=== PATIENT | female | born 1965 | race Caucasian/White ===

== ENCOUNTER 2017-06-15 12:03 | Inpatient (IN) | payer OTHER ==
--- NOTE | 2017-06-15 12:18 | PDOC ---
Attending Attestation - Resident Resident Name: Ronni Gaitan - ED Attending Attestation I have performed the following: I have examined & evaluated the patient, The case was reviewed & discussed with the resident, I agree w/resident's findings & plan, Exceptions are as noted - HPI HPI: 51 yo F history chronic R knee pain secondary to knee replacement presents with R knee, R hip, and L posterior rib pain s/p fall down stairs. She states she recently moved to a new apartment, was confused in the middle of the night when she was walking to the bathroom, fell down a flight of stairs. No LOC, no head injury, no blood thinners. She states this occurred at 4:30 am. She was able to get herself back to bedroom, but has been unable to ambulate since then. She took her oxycodone this morning without relief. - Physicial Exam PE: GENERAL: Awake, alert, and fully oriented. Appears uncomfortable, anxious. HEAD: No signs of trauma EYES: PERRLA, EOMI, sclera anicteric, conjunctiva clear ENT: Auricles normal inspection, hearing grossly normal, nares patent, oropharynx clear without exudates. Moist mucosa NECK: Normal ROM, supple, no lymphadenopathy, JVD, or masses LUNGS: Breath sounds equal, clear to auscultation bilaterally. No wheezes, and no crackles. +Tenderness to L posterior chest wall. HEART: Regular rate and rhythm, normal S1 and S2, no murmurs, rubs or gallops ABDOMEN: Soft, nontender, normoactive bowel sounds. No guarding, no rebound. No masses EXTREMITIES: +Tenderness to B/L hips, R pelvis. Limited ROM R hip due to pain. Remainder of extremities with normal range of motion, no edema. No clubbing or cyanosis. No cords, erythema. NEUROLOGICAL: Cranial nerves II through XII grossly intact. Normal speech. Motor and sensation intact. SKIN: Warm, Dry, normal turgor, no rashes or lesions noted. - Medical Decision Making Pt presents s/p fall down stairs. She was able to ambulate somewhat at home, now unable to walk. Will obtain XR L ribs, R hip and pelvis to r/o fx. I-STOP reference #: [id number]
[2017-06-15] MEDS ORDERED: HYDROmorphone HCL CARPU-JECT 2 MG/1 ML DISP.SYRIN IVPB ONE (12:45)
[2017-06-15] MEDS ORDERED: DOCUSATE SODIUM 100 MG CAPSULE (FP) PO ONE (12:45)
[2017-06-15] MEDS ORDERED: HYDROmorphone HCL CARPU-JECT 2 MG/1 ML DISP.SYRIN ONE (12:56)
[2017-06-15 13:14] LABS: BASO % 0.4 % (0-2.0); EOS % 0.9 % (0-4.5); HEMATOCRIT 43.4 % (32.4-45.2); HEMOGLOBIN 13.9 GM/dL (10.7-15.3); LYMPH % 13.3 % (8-40); MCH 29.8 pg (25.7-33.7); MCHC 32.1 g/dl (32.0-36.0); MEAN CELL VOLUME 92.9 fl (80-96); MEAN PLT VOLUME 8.4 fl (7.5-11.1); MONO % 7.5 % (3.8-10.2); NEUT % 77.9 % (42.8-82.8); PLATELET COUNT 273 K/MM3 (134-434); RBC 4.67 M/mm3 (3.60-5.2); RDW 13.7 % (11.6-15.6); WHITE BLOOD COUNT 13.3 K/mm3 (4.0-10.0)
[2017-06-15 13:40] LABS: ALBUMIN 4.3 g/dl (3.4-5.0); ALK PHOS 102 U/L (45-117); ANION GAP 9 (8-16); BILIRUBIN,TOTAL 0.4 mg/dL (0.2-1.0); BLOOD UREA NITROGEN 12 mg/dL (7-18); CHLORIDE 104 mmol/L (98-107); CO2 26 mmol/L (21-32); CREATININE 0.8 mg/dL (0.55-1.02); GLUCOSE,RANDOM 115 mg/dL (74-106); POTASSIUM 4.3 mmol/L (3.5-5.1); SGOT/AST 18 U/L (15-37); SGPT/ALT 24 U/L (12-78); SODIUM 139 mmol/L (136-145); TOT PROT 7.7 g/dl (6.4-8.2)
--- NOTE | 2017-06-15 14:25 | PDOC ---
History of Present Illness - General Chief Complaint: Injury Stated Complaint: FALL Time Seen by Provider: 06/15/17 12:16 History Source: Patient Exam Limitations: No Limitations - History of Present Illness Initial Comments: 06/15/17 14:03 51F with pmh of right knee replacement March 2016 on chronic pain management with 20mg oxycodone, diabetes, hypertension, bipolar disorder reports falling down a flight of stairs at 4:30am this morning to go to the bathroom in a facility she's not familiar with. Patient complains of right knee pain, bilateral hip pain and left rib pain. No loss of consciousness. No visible bruises. Not on anti anticoagulants or antiplatelets. Was able to walk back upstairs and didn't call ems right away because she was "scared" Took her 20g dose of oxycodone this morning without relief Saw her pcp yesterday a got treated with z-pack for sinusitis. 06/15/17 14:30 Past History - Past Medical History Allergies/Adverse Reactions: Allergies Allergy/AdvReac Type Severity Reaction Status Date / Time amoxicillin AdvReac Vomiting Verified 04/09/16 06:35 amoxicillin trihydrate AdvReac Vomiting Verified 04/09/16 06:35 [From Augmentin] potassium clavulanate AdvReac Vomiting Verified 04/09/16 06:35 [From Augmentin] Home Medications: Ambulatory Orders Atorvastatin Calcium [Lipitor] 10 mg PO DAILY 03/29/16 Metformin HCl [Glucophage] 1,000 mg PO BID 03/29/16 Oxycodone HCl [Oxycodone HCl ER] 20 mg PO Q6H 03/29/16 Ranitidine HCl 300 mg PO DAILY 03/29/16 Venlafaxine HCl ER [Effexor Xr -] 150 mg PO DAILY 03/29/16 FENTANYL 12mcg PATCH [DURAGESIC 12mcg PATCH -] 1 each TD Q72H 06/15/17 Lamotrigine [Lamictal -] 200 mg PO HS 06/15/17 Omeprazole 40 mg PO DAILY 06/15/17 Pregabalin [Lyrica -] 75 mg PO BID 06/15/17 Propranolol HCl 10 mg PO TID PRN 06/15/17 Anemia: No Asthma: No Cancer: No Cardiac Disorders: No CVA: No COPD: No CHF: No Dementia: No Diabetes: Yes GI Disorders: Yes (acid reflux) Disorders: Yes (bladder stimulant) HTN: No Hypercholesterolemia: Yes Liver Disease: No Psychiatric Problems: Yes (ANXIETY, DEPRESSION.) Seizures: No Thyroid Disease: No Other medical history: SPINAL CORD STIMULATOR. CHRONIC PAIN. - Surgical History Abdominal Surgery: No Appendectomy: No Cardiac Surgery: No Cholecystectomy: No Lung Surgery: No Neurologic Surgery: Yes (SPINAL FUSION) Orthopedic Surgery: Yes (ARTHROSCOPY R KNEE) - Suicide/Smoking/Psychosocial Hx Smoking Status: Yes Smoking History: Current every day smoker Years of Tobacco Use: 20 Have you smoked in the past 12 months: Yes Number of Cigarettes Smoked Daily: 20 Cigars Per Day: 0 Information on smoking cessation initiated: No 'Breaking Loose' booklet given: 10/08/12 Hx Alcohol Use: No Drug/Substance Use Hx: Yes Substance Use Type: Prescribed Hx Substance Use Treatment: No Review of Systems - Review of Systems Able to Perform ROS?: Yes Is the patient limited Croatian proficient: No Constitutional: No: Symptoms Reported HEENTM: No: Symptoms Reported Respiratory: No: Symptoms reported Cardiac (ROS): No: Symptoms Reported ABD/GI: No: Symptoms Reported : No: Symptoms Reported Musculoskeletal: Yes: See HPI Integumentary: No: Symptoms Reported Neurological: Yes: Pre-Existing Deficit. No: Symptoms reported *Physical Exam - Vital Signs Last Vital Signs Temp Pulse Resp BP Pulse Ox 98.2 F 87 18 162/102 94 L 06/15/17 12:07 06/15/17 12:07 06/15/17 12:07 06/15/17 12:07 06/15/17 12:07 - Physical Exam General Appearance: Yes: Nourished, Appropriately Dressed, Moderate Distress, Obese HEENT: positive: EOMI, KAELYN, Normal ENT Inspection Neck: negative: Tender Respiratory/Chest: positive: Chest Tender (posterior left ribs) Cardiovascular: positive: Regular Rhythm, Regular Rate, S1, S2. negative: Edema Gastrointestinal/Abdominal: positive: Other (wearing diaper) Musculoskeletal: positive: Other (pain right hi[p, right knee) Neurologic: positive: Fully Oriented, Alert, Respond to painful stimul ED Treatment Course - LABORATORY CBC & Chemistry Diagram: 06/15/17 12:55 06/15/17 12:55 - ADDITIONAL ORDERS Additional order review: Laboratory Results 06/15/17 12:55 Sodium 139 Potassium 4.3 Chloride 104 Carbon Dioxide 26 Anion Gap 9 BUN 12 Creatinine 0.8 D Creat Clearance w eGFR > 60 Random Glucose 115 H Calcium 10.0 Total Bilirubin 0.4 D AST 18 D ALT 24 D Alkaline Phosphatase 102 D Total Protein 7.7 Albumin 4.3 06/15/17 12:55 RBC 4.67 MCV 92.9 MCHC 32.1 RDW 13.7 MPV 8.4 Neutrophils % 77.9 Lymphocytes % 13.3 D Monocytes % 7.5 D Eosinophils % 0.9 Basophils % 0.4 - RADIOLOGY Radiology Studies Ordered: Category Date Time Status HIP & PELVIS-LEFT [RAD] Stat Radiology 06/15/17 12:45 Ordered HIP & PELVIS-RIGHT [RAD] Stat Radiology 06/15/17 12:43 Ordered KNEE 2 POS-RIGHT [RAD] Stat Radiology 06/15/17 12:45 Ordered RIBS-LEFT SIDE [RAD] Stat Radiology 06/15/17 12:50 Ordered - Medications Given in the ED: ED Medications Discontinued Medications Generic Name Dose Route Start Last Admin Trade Name Bryanq PRN Reason Stop Dose Admin Docusate Sodium 100 mg 06/15/17 12:45 06/15/17 12:47 Colace - PO 06/15/17 12:46 Not Given ONCE ONE Hydromorphone HCl 2 mg 06/15/17 12:45 06/15/17 13:06 Dilaudid Injection - IVPB 06/15/17 12:46 2 mg ONCE ONE Administration Medical Decision Making - Medical Decision Making 06/15/17 14:33 51F on chronic pain control s/p r knee replacement present post fall down stairs. Xray series ordered on hips, righ knee and left ribs. Dilaudid for pain control and basic labs. 06/15/17 16:05 Xray positive for acute right neck femoral fracture. Ortho consulted (Toro Soto, covering for Dr. Montanez) patient to be admitted. 06/15/17 16:18 Symphony microblogged. 06/15/17 16:[address] Montanez who confirmed he'll see her tomorrow and clear her for surgery for saturday. *DC/Admit/Observation/Transfer Diagnosis at time of Disposition: Fracture of femoral neck, right, closed - Discharge Dispostion Admit: Yes - Referrals - Patient Instructions - Post Discharge Activity
[2017-06-15] MEDS ORDERED: HYDROmorphone HCL CARPU-JECT 1 MG/1 ML DISP.SYRIN IVPB ONE (16:30)
[2017-06-15 16:50] LABS: INR 1.07 (0.82-1.09); PROTHROMBIN TIME (PATIENT) 12.1 SEC (9.98-11.88)
[2017-06-15] MEDS ORDERED: HYDROmorphone HCL CARPU-JECT 1 MG/1 ML DISP.SYRIN ONE (16:51)
[2017-06-15 16:53] LABS: ACTIVATED PTT 34.6 SECONDS (26.9-34.4)
[2017-06-15] MEDS ORDERED: ALBUTEROL SO4 2.5/IPRATROPIUM 0.5 INH SOL 3 ML VIAL.NEB. NEB ONE (17:49)
[2017-06-15] MEDS ORDERED: ALBUTEROL SO4 2.5/IPRATROPIUM 0.5 INH SOL 3 ML VIAL.NEB. NEB PRN (17:49)
[2017-06-15] MEDS ORDERED: FENTANYL PATCH WASTE TD PRN (18:07)
[2017-06-15] MEDS ORDERED: fentaNYL 12mcg/hr PATCH.TD72 TD SCH (18:15)
[2017-06-15] MEDS ORDERED: oxyCODONE HCL 20 MG SUSTAINED ACTING TABLET PO SCH (18:15)
[2017-06-15 19:35] VITALS: BMI 29.5
--- NOTE | 2017-06-15 19:51 | PN ---
Teaching Attending Note Name of Resident: Rebecca Chavez ATTENDING PHYSICIAN STATEMENT I saw and evaluated the patient. I reviewed the resident's note and discussed the case with the resident. I agree with the resident's findings and plan as documented. SUBJECTIVE: 51 y/o lady with h/ DM , chronic back pain, s/p stimulator, and urinary incontinence s/p bladder stimulator , depression and other medical problems who presented with R hip pain after a fall. she fell down the stairs, with no LOC, palpitations, vertigo or other complaints . she had R hip pain and in Er she was found to have R femoral neck Fx. she smokes 1-2 packs daily . denies SOB, or exertional CP. she denies h/o CHF or heart disease developed sneeezing nad nasal congestion 2 days ago, and was prescribed Z pack by her doctor OBJECTIVE: NAD, MMM, nO LAP inneck , no facial droop, tongue at mid line, no erythema or exudate in oropharynx CV: RRR Lungs : scattered wheezing , no crackles Abd: soft, NT, ND , NL BS , hepatojugular reflux Ext : TTP over R lateral hip, no bruising. No edema on legs . No fungal infection in feet Neuro : strength 5/5 in upper a extremities , proximally and distally. reflexes 2+ biceps and 1+ knee jerk b/l . EOMI, round equal pupils reactive to light , no facial droop. ASSESSMENT AND PLAN: 51 y/o lady with h/ DM , chronic back pain, s/p stimulator, and urinary incontinence s/p bladder stimulator , depression and other medical problems who presented with R hip pain after a fall. she was found to have R femoral neck Fx. 1- R femoral neck Fx : - pain control with fentanyl patch ( home dos e) - PRN IV pain mds - and oxycodone - Sx eval - elbert-op risk stratification : can not be done until echo is obtained due to hepaojugular reflux noted on exam. - DVT PX 2- Wheezing: denies SOB, Sat O2 93 on RA, probably has underlying COPD. - give duonemd - nicotine patch . - no need for steroids at this time - check cxray 3- DM : will give SSI , will confirm her home meds 4- Leukocytosis : likely due to stress reaction in setting of Fx. will hold off Abx. 5- HLOC
[2017-06-15] MEDS: lamoTRIgine 100 MG TABLET (FP) PO SCH (21:38)
[2017-06-15] MEDS: ATORVASTATIN CA 10 MG TABLET (FP) PO SCH (21:39)
[2017-06-15] MEDS: PREGABALIN 75 MG CAPSULE PO SCH (21:39)
[2017-06-15] MEDS: HEPARIN NA (PORCINE) 5,000 UNITS/ML 1ML VIAL SQ SCH (21:39)
[2017-06-15] MEDS: oxyCODONE HCL 10 MG SUSTAINED ACTING TABLET PO SCH (21:52)
[2017-06-15] MEDS ORDERED: INSULIN SLIDING SCALE (NOVOLOG) 1 VIAL SQ SCH (22:00)
--- NOTE | 2017-06-15 22:44 | HP ---
CHIEF COMPLAINT: Mechanical Fall PCP: Dr. Beverly Burleson HISTORY OF PRESENT ILLNESS: Patient is a 51 year old female with a PMHx of chronic back pain s/p spinal fusion with stimulator, Urinary incontinence s/p bladder stimulator, depression/ Anxiety/Bipolar disorder, NIDDMII who presents today s/p mechanical fall. Patient reports she recently moved to a new place and is unfamiliar with her new place. She was walking out of the bedroom and went the wrong way towards the stairs. Patient fell from 8 steps of stairs landing in her right hip. Patient denies any LOC, dizziness, chest pain, palpitations before, during, or after the fall. Patient does report having sinus congestion and cough that started earlier this week for which she went to her doctor for yesterday and prescribed her a Z-Pack. Patient states she was tested for influenza and strep , which were both negative. Otherwise, patient denies fever, chills, nausea, vomiting, abdominal pain, chest pain, palpitations, shortness of breath, dysuria , hematuria, frequency. ER course was notable for: (1)Pelvic X-Ray revealed Right femur fracture (2)Dilaudid for pain control (3) Recent Travel: Denies PAST MEDICAL HISTORY: chronic back pain s/p spinal fusion with stimulator, Urinary incontinence s/p bladder stimulator, depression/Anxiety/Bipolar disorder , NIDDMII PAST SURGICAL HISTORY: Right knee replacement (March 2016), Partial Hysterectomy (>10 years), Bladder and Spinal Stimulator, Spinal Fusion (10 years ago) Social History: Smokin PPD for 20+ years Alcohol: Denies Drugs: Denies Family History: Denies Allergies: amoxicillin Adverse Reaction (Verified 04/09/16 06:35) Vomiting amoxicillin trihydrate [From Augmentin] Adverse Reaction (Verified 04/09/16 06: 35) Vomiting potassium clavulanate [From Augmentin] Adverse Reaction (Verified 04/09/16 06:35 ) Vomiting HOME MEDICATIONS: Home Medications Medication Instructions Recorded Atorvastatin Calcium [Lipitor] 10 mg PO DAILY 03/29/16 Metformin HCl [Glucophage] 1,000 mg PO BID 03/29/16 Oxycodone HCl [Oxycodone HCl ER] 20 mg PO Q6H 03/29/16 Ranitidine HCl 300 mg PO DAILY 03/29/16 Venlafaxine HCl ER [Effexor Xr -] 150 mg PO DAILY 03/29/16 FENTANYL 12mcg PATCH [DURAGESIC 1 each TD Q72H 06/15/17 12mcg PATCH -] Lamotrigine [Lamictal -] 200 mg PO HS 06/15/17 Omeprazole 40 mg PO DAILY 06/15/17 Pregabalin [Lyrica -] 75 mg PO BID 06/15/17 Propranolol HCl 10 mg PO TID PRN 06/15/17 REVIEW OF SYSTEMS CONSTITUTIONAL: Absent: fever, chills, diaphoresis, generalized weakness, malaise, loss of appetite, weight change HEENT: nasal congestion Absent: throat pain, throat swelling, difficulty swallowing, mouth swelling, ear pain, eye pain, visual changes CARDIOVASCULAR: Absent: chest pain, syncope, palpitations, irregular heart rate, lightheadedness , peripheral edema RESPIRATORY: cough Absent: shortness of breath, dyspnea with exertion, orthopnea, wheezing, stridor , hemoptysis GASTROINTESTINAL: constipation Absent: abdominal pain, abdominal distension, nausea, vomiting, diarrhea, melena , hematochezia GENITOURINARY: Absent: dysuria, frequency, urgency, hesitancy, hematuria, flank pain, genital pain MUSCULOSKELETAL: back pain Absent: myalgia, arthralgia, joint swelling, neck pain SKIN: Absent: rash, itching, pallor HEMATOLOGIC/IMMUNOLOGIC: Absent: easy bleeding, easy bruising, lymphadenopathy, frequent infections ENDOCRINE: Absent: unexplained weight gain, unexplained weight loss, heat intolerance, cold intolerance NEUROLOGIC: Absent: headache, focal weakness or paresthesias, dizziness, unsteady gait, seizure, mental status changes, bladder or bowel incontinence PSYCHIATRIC: Absent: anxiety, depression, suicidal or homicidal ideation, hallucinations. PHYSICAL EXAMINATION Vital Signs - 24 hr 06/15/17 06/15/17 06/15/17 12:07 17:37 18:39 Temperature 98.2 F 98.0 F 97.7 F Pulse Rate 87 94 H Pulse Rate [ 98 H Apical] Respiratory 18 18 22 Rate Blood Pressure 162/102 158/96 Blood Pressure 142/88 [Left Arm] O2 Sat by Pulse 94 L 96 Oximetry (%) 06/15/17 06/15/17 19:30 19:41 Temperature 97.7 F Pulse Rate 94 H Pulse Rate [ Apical] Respiratory 20 20 Rate Blood Pressure 159/47 Blood Pressure [Left Arm] O2 Sat by Pulse 96 Oximetry (%) GENERAL: Awake, alert, and fully oriented, in no acute distress. HEAD: Normal with no signs of trauma. EYES: Pupils equal, round and reactive to light, extraocular movements intact, sclera anicteric, conjunctiva clear. No lid lag. EARS, NOSE, THROAT: Oropharynx clear without exudates. Moist mucous membranes. NECK: Supple without lymphadenopathy, JVD, or masses. LUNGS: Scattered wheezing throughout lung bases bilaterally. No accessory muscle use. HEART: Regular rate and rhythm, normal S1 and S2 without murmur, rub or gallop. ABDOMEN: Soft, Obese, nontender, not distended, normoactive bowel sounds, (+) hepatojugular reflex, no guarding, no rebound, no masses. MUSCULOSKELETAL: Limited ROM of back due to chronic back pain UPPER EXTREMITIES: No peripheral edema. LOWER EXTREMITIES: 2+ pulses, warm, well-perfused. No calf tenderness. No peripheral edema. Right leg externally rotated with tenderness upon palpation. NEUROLOGICAL: Cranial nerves II-XII intact. Normal speech. Motor strength 5/5 in upper extremity. Unable to assess LE due to limited ROM. Sensory intact throughout. Reflex 1+ in right knee, 2+ on left PSYCHIATRIC: Cooperative. Good eye contact. Appropriate mood and affect. SKIN: Warm, dry, normal turgor, no rashes or lesions noted, normal capillary refill. Laboratory Results - last 24 hr 06/15/17 06/15/17 06/15/17 12:55 12:55 16:25 WBC 13.3 H D RBC 4.67 Hgb 13.9 D Hct 43.4 MCV 92.9 MCH 29.8 MCHC 32.1 RDW 13.7 Plt Count 273 MPV 8.4 Neutrophils % 77.9 Lymphocytes % 13.3 D Monocytes % 7.5 D Eosinophils % 0.9 Basophils % 0.4 PT with INR 12.10 H INR 1.07 PTT (Actin FS) 34.6 H Sodium 139 Potassium 4.3 Chloride 104 Carbon Dioxide 26 Anion Gap 9 BUN 12 Creatinine 0.8 D Creat Clearance w eGFR > 60 Random Glucose 115 H Calcium 10.0 Total Bilirubin 0.4 D AST 18 D ALT 24 D Alkaline Phosphatase 102 D Total Protein 7.7 Albumin 4.3 Blood Type Antibody Screen 06/15/17 16:25 WBC RBC Hgb Hct MCV MCH MCHC RDW Plt Count MPV Neutrophils % Lymphocytes % Monocytes % Eosinophils % Basophils % PT with INR INR PTT (Actin FS) Sodium Potassium Chloride Carbon Dioxide Anion Gap BUN Creatinine Creat Clearance w eGFR Random Glucose Calcium Total Bilirubin AST ALT Alkaline Phosphatase Total Protein Albumin Blood Type O POSITIVE Antibody Screen Negative IMAGES Pelvic/Hip/Knee X-ray (06/15/17): Stimulator devices, Lower LS spinal fusion, Acute Right femoral Fracture with varus deformity and intact left hip. Intact right knee replacement. No acute pathology of the Knee ASSESSMENT/PLAN: Patient is a 51 year old female who presented s/p mechanical fall and was found to have an acute right femur fracture. Patient admitted for further monitoring and management. Right Femoral Neck Fracture -S/P mechanical fall -Continue pain control with home medications Fentanyl patch, Oxycontin 20mg TID -Morpine 2mg Q4H PRN -Orthopedic surgery consulted -Elvira-operative Risk Stratification: Will need to obtain ECHO due to patient having hepatojugular reflux on physical exam. METS 4-7. -Chest X-Ray ordered -PT after procedure Wheezing with no Dyspnea -Likely secondary to undiagnosed COPD. Patient is a 1PPD smoker for >20 years -DuoNeb order now and then QID PRN -Peak Flow measurement -Spirometer Q1H -Will need outpatient PFT's with commercial designer NIDDMII -ISS -BGM Urinary Incontinence -Has a stimulator Chronic Back Pain -s/p Spinal fusion and spine stimulator -On Pain management . Will continue oxycontin 20mg TID, Lyrica 75mg BID, Fentanyl patch, Effexor 150mg daily Bipolar/Depression/Anxiety -Continue home medication Lamictal 200mg daily and Effexor 150mg dialy -Propranolol 10mg PRN for anxiety Nicotine Dependence -Nicoderm patch 21mg TD F/E/N -On no fluids. Tolerating PO -Electrolytes wnl -Diabetic controlled diet Prophylaxis -Moderate risk. Heparin 5000 units SQ for DVT -PPI for GI Disposition -Full code -Ortho evaluation and will need surgery. Will need inpatient for another night Visit type - Emergency Visit Emergency Visit: Yes ED Registration Date: 06/15/17 Care time: The patient presented to the Emergency Department on the above date and was hospitalized for further evaluation of their emergent condition. - New Patient This patient is new to me today: Yes Date on this admission: 06/15/17 - Critical Care Critical Care patient: No
[2017-06-16] MEDS: HEPARIN NA (PORCINE) 5,000 UNITS/ML 1ML VIAL SQ SCH ×3 (06:06→21:35)
[2017-06-16] MEDS: INSULIN SLIDING SCALE (NOVOLOG) 1 VIAL SQ SCH ×3 (06:07→17:13)
[2017-06-16] MEDS ORDERED: metFORMIN HCL 500 MG TABLET (FP) PO SCH (07:00)
[2017-06-16 09:02] LABS: HEMATOCRIT 42.7 % (32.4-45.2); HEMOGLOBIN 14.2 GM/dL (10.7-15.3); MCH 30.3 pg (25.7-33.7); MCHC 33.1 g/dl (32.0-36.0); MEAN CELL VOLUME 91.6 fl (80-96); MEAN PLT VOLUME 8.5 fl (7.5-11.1); PLATELET COUNT 261 K/MM3 (134-434); RBC 4.66 M/mm3 (3.60-5.2); RDW 13.8 % (11.6-15.6); WHITE BLOOD COUNT 13.9 K/mm3 (4.0-10.0)
[2017-06-16] MEDS: RANITIDINE HCL 150 MG TABLET (FP) PO SCH (09:06)
[2017-06-16] MEDS: NICOTINE 21 MG/24 HOURS TOPICAL PATCH TD SCH (09:06)
[2017-06-16] MEDS: PREGABALIN 75 MG CAPSULE PO SCH ×2 (09:06→21:34)
[2017-06-16] MEDS: oxyCODONE HCL 10 MG SUSTAINED ACTING TABLET PO SCH (09:06)
[2017-06-16] MEDS: PANTOPRAZOLE 40 MG TABLET (FP) PO SCH (09:06)
[2017-06-16] MEDS ORDERED: VENLAFAXINE HCL 150 MG E.R. CAPSULE PO SCH (10:00)
[2017-06-16] MEDS: VENLAFAXINE HCL 75 MG E.R. CAPSULES (FP) PO SCH (10:58)
[2017-06-16] MEDS ORDERED: INSULIN (NOVOLOG) ASPART 100 UNITS/ML 10ML VIAL ONE (11:47)
[2017-06-16] MEDS: morphine SULFATE 4 MG/ML VIAL IVPUSH PRN (11:49)
--- NOTE | 2017-06-16 12:46 | PN ---
Progress Note (short form) - Note Progress Note: 51yo female well known to me with multiple comorbidities and right displaced femoral neck fracture. CT of right hip ordered. Will consult on patient tonight. The plan is a right total hip replacement tomorrow (Saturday). Full consult note to follow.
--- NOTE | 2017-06-16 15:28 | PN ---
Progress Note (short form) - Note Progress Note: Subjective: complains of pain in R hip, no CP or SOB Objective: Vital Signs: Last Vital Signs Temp Pulse Resp BP Pulse Ox 98.7 F 96 H 20 141/83 96 06/16/17 10:00 06/16/17 10:00 06/16/17 10:00 06/16/17 10:00 06/15/17 19:41 Laboratory Results - last 24 hr 06/15/17 06/15/17 06/16/17 16:25 16:25 06:06 WBC RBC Hgb Hct MCV MCH MCHC RDW Plt Count MPV PT with INR 12.10 H INR 1.07 PTT (Actin FS) 34.6 H POC Glucometer 138 Blood Type O POSITIVE Antibody Screen Negative 06/16/17 06/16/17 08:00 11:40 WBC 13.9 H RBC 4.66 Hgb 14.2 Hct 42.7 MCV 91.6 MCH 30.3 MCHC 33.1 RDW 13.8 Plt Count 261 MPV 8.5 PT with INR INR PTT (Actin FS) POC Glucometer 191 Blood Type Antibody Screen Physical Exam: NAD, MMM, nO LAP in neck , no facial droop, no erythema or exudate in oropharynx CV: RRR Lungs : no crackles, ocasional wheezing heard Abd: soft, NT, ND , NL BS , hepatojugular reflux Ext : TTP over R lateral hip, no bruising. No edema on legs . No fungal infection in feet ASSESSMENT AND PLAN: 51 y/o lady with h/ DM , chronic back pain, s/p stimulator, and urinary incontinence s/p bladder stimulator , depression and other medical problems who presented with R hip pain after a fall. she was found to have R femoral neck Fx. 1- R femoral neck Fx : - pain control with fentanyl patch ( home dose) - change long acting oxycodone to immediate release - Ortho eval pending. CT of hip ordered - Pre-op risk stratification : can not be done until echo is obtained due to hepaojugular reflux noted on exam. - DVT PX 2- Wheezing: might have underlying COPD with her heavy smoking . wheezing almost resolved. No oxygen requirement . - cont Nebs - nicotine patch 3- Fever, x 1 . mild leukocytosis. no clear source . cxray with clear lung s. - check UA , if positive check U cx - monitor WBC and for fever 4- DM : will give SSI, hold metformin 5- HLOC Visit type - Emergency Visit Emergency Visit: Yes ED Registration Date: 06/15/17 Care time: The patient presented to the Emergency Department on the above date and was hospitalized for further evaluation of their emergent condition. - New Patient This patient is new to me today: No - Critical Care Critical Care patient: No
[2017-06-16] MEDS: oxyCODONE HCL 5 MG TABLET PO PRN (17:14)
[2017-06-16 20:12] LABS: URINE APPEARANCE SLCLOUDY; URINE BILIRUBIN NEGATIVE (NEGATIVE); URINE BLOOD 1+ (NEGATIVE); URINE COLOR YELLOW; URINE GLUCOSE (UA) 1+ (NEGATIVE); URINE KETONE 1+ (NEGATIVE); URINE LEUK ESTERASE NEGATIVE (NEGATIVE); URINE NITRITE NEGATIVE (NEGATIVE); URINE UROBILINOGEN NEGATIVE mg/dL (0.2-1.0)
[2017-06-16 20:16] LABS: URINE PROTEIN 1+ (NEGATIVE)
[2017-06-16 20:17] LABS: EPI CELLS FEW /HPF (FEW); URINE MUCUS RARE
[2017-06-16] MEDS: lamoTRIgine 100 MG TABLET (FP) PO SCH (21:34)
[2017-06-16] MEDS: ATORVASTATIN CA 10 MG TABLET (FP) PO SCH (21:35)
--- NOTE | 2017-06-16 23:47 | CONSULT ---
Consult - text type - Consultation Consultation Note: Orthopedics 51yo female well known to me (s/p R TKA 03/2016) fell down the stairs and sustained a femoral neck fracture. Pt seen and examined. Comfortable in bed. Afebrile Selected Entries 06/16/17 06/16/17 19:36 21:00 Temperature 98.6 F Pulse Rate 109 H Respiratory 20 Rate Blood Pressure 140/84 O2 Sat by Pulse 96 Oximetry (%) Oxygen Delivery Room Air Method Laboratory Tests 06/15/17 06/16/17 12:55 08:00 WBC 13.9 H Hgb 14.2 Hct 42.7 Plt Count 261 Sodium 139 Potassium 4.3 Chloride 104 Carbon Dioxide 26 Anion Gap 9 BUN 12 Creatinine 0.8 D Creat Clearance w eGFR > 60 Gen: NAD, AAO RLE: skin intact, no cuts/abrasions. Shortened and externally rotated. Unable to move hip. (+) severe pain with log roll. NVID XR/CT R hip - comminuted/impacted/displaced femoral neck fracture A/P 51yo female with right hip comminuted/impacted/displaced femoral neck fracture Treatment options discussed extensively with pt - ORIF vs IAN. I feel there is a high likelihood that an ORIF would fail to heal - pt is a heavy smoker, femoral neck is comminuted, pt has chronic neuropathy and LE weakness that will make it unlikely that she can maintain NWB or PWB while the fracture heals, poor nutrition and osteoporosis, chronic pain and radiculopathy despite spinal cord stimulator and heavy narcotic use. If the fracture doesn't heal then she will require a removal of hardware and then IAN, which will be more difficult and may not have as good an outcome as a primary IAN. The alternative is to proceed with a IAN tomorrow. I feel that this is the better plan for her (one surgery, no risk of nonunion, full weight bearing immediately postop) and she agrees. Plan is for total hip replacement tomorrow. Pt will be NPO after MN.
[2017-06-17] MEDS: oxyCODONE HCL 5 MG TABLET PO PRN (03:36)
[2017-06-17] MEDS: INSULIN SLIDING SCALE (NOVOLOG) 1 VIAL SQ SCH ×3 (06:13→15:56)
[2017-06-17] MEDS: VENLAFAXINE HCL 75 MG E.R. CAPSULES (FP) PO SCH (08:16)
[2017-06-17 08:22] LABS: BASO % 0.5 % (0-2.0); EOS % 1.6 % (0-4.5); HEMATOCRIT 44.1 % (32.4-45.2); HEMOGLOBIN 14.6 GM/dL (10.7-15.3); LYMPH % 24.6 % (8-40); MCH 30.4 pg (25.7-33.7); MCHC 33.1 g/dl (32.0-36.0); MEAN CELL VOLUME 91.6 fl (80-96); MEAN PLT VOLUME 8.8 fl (7.5-11.1); MONO % 8.3 % (3.8-10.2); PLATELET COUNT 267 K/MM3 (134-434); RBC 4.81 M/mm3 (3.60-5.2); RDW 13.3 % (11.6-15.6)
--- NOTE | 2017-06-17 08:50 | PN ---
Physical Exam: SUBJECTIVE: Patient seen and examined while getting ECHO this AM. Slept poorly. Reports SOB/wheezing improved. No fever, chills, CP. OBJECTIVE: Vital Signs Period Temp Pulse Resp BP Sys/Foster Pulse Ox Last 24 Hr 98.0 F-98.7 F 68-109 18-20 117-149/65-85 96-97 GENERAL: nad, aox3 LUNGS: CTAB, no wheezing appreciated HEART: rrr, normal s1/s2, no jvd EXTREMITIES: 2+ DP, no edema CBC, BMP 06/17/17 07:45 06/15/17 12:55 Hepatic Panel Total Bilirubin 0.4 mg/dL (0.2-1.0) D 06/15/17 12:55 AST 18 U/L (15-37) D 06/15/17 12:55 ALT 24 U/L (12-78) D 06/15/17 12:55 Alkaline Phosphatase 102 U/L (45-117) D 06/15/17 12:55 Albumin 4.3 g/dl (3.4-5.0) 06/15/17 12:55 Active Medications Acetaminophen (Tylenol -) 650 mg PO Q6HPO AMY Al Hydroxide/Mg Hydroxide (Mylanta Oral Suspension -) 30 ml PO Q4H PRN PRN Reason: DYSPEPSIA Albuterol/Ipratropium (Duoneb -) 1 amp NEB Q6H PRN PRN Reason: SHORTNESS OF BREATH Last Admin: 06/16/17 06:10 Dose: 1 amp Ascorbic Acid (Vitamin C -) 500 mg PO BID AMY Atorvastatin Calcium (Lipitor -) 10 mg PO HS AMY Last Admin: 06/16/17 21:35 Dose: 10 mg Fentanyl (Duragesic 12mcg Patch -) 1 patch TD Q72H AMY Last Admin: 06/15/17 21:39 Dose: 1 patch Ferrous Sulfate (Feosol -) 325 mg PO BIDWM AMY Hydromorphone HCl (Dilaudid Pipe Organ Tuner And Repairer -) 0 mg MAKE UP WORKER MAKE UP WORKER AMY PRN Reason: Protocol Stop: 06/24/17 18:43 Last Admin: 06/17/17 19:06 Dose: 10 mg Lactated Ringer's (Lactated Ringers Solution) 1,000 mls @ 125 mls/hr IV ASDIR [facility] Stop: 06/18/17 06:00 Lactated Ringer's (Lactated Ringers Solution) 1,000 mls @ 125 mls/hr IV ASDIR [facility] Cefazolin Sodium (Ancef -) 1 gm in 10 mls @ 120 mls/hr IVPUSH Q8H-IV [facility] Stop: 06/18/17 10:04 Insulin Aspart (Novolog Vial Sliding Scale -) 1 vial SQ TIDAC AMY PRN Reason: Protocol Last Admin: 06/17/17 15:56 Dose: Not Given Ketorolac Tromethamine (Toradol Injection -) 30 mg IVPUSH Q6H-IV [facility] Stop: 06/18/17 15:01 Last Admin: 06/17/17 19:25 Dose: 30 mg Labetalol HCl (Normodyne Injection -) 10 mg IVPUSH ONCE PRN PRN Reason: HYPERTENSION Last Admin: 06/17/17 18:50 Dose: 10 mg Lamotrigine (Lamictal -) 200 mg PO HS [facility] Last Admin: 06/16/17 21:34 Dose: 200 mg Magnesium Hydroxide (Milk Of Magnesia -) 30 ml PO DAILY PRN PRN Reason: CONSTIPATION Miscellaneous (Duragesic Patch Waste) 1 each TD PRN PRN Morphine Sulfate (Morphine Sulfate) 2 mg IVPUSH Q4H PRN PRN Reason: PAIN SCALE 7-10 Last Admin: 06/17/17 10:49 Dose: 2 mg Multivitamins/Minerals/Vitamin C (Tab-A-Vit -) 1 tab PO DAILY [facility] Nicotine (Nicoderm Patch -) 21 mg TD DAILY [facility] Last Admin: 06/17/17 10:15 Dose: Not Given Ondansetron HCl (Zofran Injection) 4 mg IVPUSH Q6H PRN PRN Reason: NAUSEA AND/OR VOMITING Oxycodone HCl (Roxicodone -) 20 mg PO Q6H PRN PRN Reason: PAIN SCALE 3-6 Last Admin: 06/17/17 03:36 Dose: 20 mg Oxycodone HCl (Oxycontin -) 10 mg PO BID [facility] Pantoprazole Sodium (Protonix -) 40 mg PO DAILY [facility] Last Admin: 06/17/17 10:13 Dose: Not Given Pregabalin (Lyrica -) 75 mg PO BID [facility] Last Admin: 06/17/17 10:13 Dose: Not Given Ranitidine HCl (Zantac -) 300 mg PO DAILY [facility] Last Admin: 06/17/17 10:13 Dose: Not Given Senna/Docusate Sodium (Pericolace -) 1 tablet PO BID [facility] Venlafaxine HCl (Effexor Xr -) 150 mg PO DAILY@0800 [facility] Last Admin: 06/17/17 08:16 Dose: Not Given ASSESSMENT/PLAN: 51yo woman with PMH of chronic back pain s/p simulator, incontinence s/p bladder stimulator, and NIDDM who presents s/p mechanical fall, found to have Right femur neck fracture. #Right Femoral Neck Fracture - Ortho planning total hip replacement today -Pain control with Fentanyl patch, morphine 2mg IVP Q6H PRN, Roxicodone 20mg TID -Elbert-operative Risk Stratification: intermediate risk procedure. Although ECHO wnl, no signs of HF, ACS, arrhythmia, pt has limited functional status due chronic back pain, < 4 METs and thus intermediate risk for elbert-op cardiac complications. -Ortho recs for PT after procedure #Wheezing w/o dyspnea, 20pack-year smoking hx, likely 2/2 undiagnosed COPD -duoneb QID PRN -Incentive spirometer #NIDDM -ISS and BGM #Chronic Back Pain s/p spinal stimulator -Continue home oxycontin 20mg TID, Lyrica 75mg BID, Fentanyl patch, Effexor 150mg daily #Bipolar/Depression/Anxiety -Cont Lamictal 200mg daily and Effexor 150mg dialy -Propanolol 10mg PRN for anxiety #Nicotine Dependence -Nicotine patch 21mg TD #F/E/N: Hold IVFs/ lytes wnl / DM diet #PPX -DVT - start Lovenox 40mg SQ daily after surgery -GI - Protonix #Disposition - continue M/S FULL code d/w Dr. Shama Georges MD PGY1 - Internal Medicine Visit type - Emergency Visit Emergency Visit: No - New Patient This patient is new to me today: Yes Date on this admission: 06/17/17 - Critical Care Critical Care patient: No
[2017-06-17] MEDS: RANITIDINE HCL 150 MG TABLET (FP) PO SCH (10:13)
[2017-06-17] MEDS: PANTOPRAZOLE 40 MG TABLET (FP) PO SCH (10:13)
[2017-06-17] MEDS: PREGABALIN 75 MG CAPSULE PO SCH ×2 (10:13→22:17)
[2017-06-17] MEDS: NICOTINE 21 MG/24 HOURS TOPICAL PATCH TD SCH (10:15)
[2017-06-17] MEDS: morphine SULFATE 4 MG/ML VIAL IVPUSH PRN (10:49)
--- NOTE | 2017-06-17 12:03 | PN ---
Teaching Attending Note Name of Resident: Lary Georges ATTENDING PHYSICIAN STATEMENT I saw and evaluated the patient. I reviewed the resident's note and discussed the case with the resident. I agree with the resident's findings and plan as documented. SUBJECTIVE: NO fever or chills, pain is controlled on current regimen OBJECTIVE: NAD, MMM, CV: RRR Lungs : no crackles,CTAB Abd: soft, NT, ND , NL BS Ext : TTP over R lateral hip, no bruising. No edema on legs . No fungal infection in feet . DP 2+ b/l ASSESSMENT AND PLAN: 51 y/o lady with h/ DM , chronic back pain, s/p stimulator, and urinary incontinence s/p bladder stimulator , depression and other medical problems who presented with R hip pain after a fall. she was found to have R femoral neck Fx. 1- R femoral neck Fx: - pain control with fentanyl patch - co nt PRN Oxycodone - Pre-op risk stratification: this is an intermediate risk procedure. the patient herself, has no SOB , palpitations or extertional CP . she has no signs of heart failure, or arrhythmias, or ACS. She has limited functional status though due to her back pain. given all that she will be at intermediate risk for elbert-op cardiac complications for this intermediate risk procedure - resume DVT PX after sx with lovenox 2- Wheezing: might have underlying COPD with her heavy smoking .clear lungs - cont Nebs - nicotine patch 3- Fever, x 1 . mild leukocytosis. no signs or sx of infection - UA and Cxray nl - No indication for ABx 4- DM : SSI, hold metformin 5- HLOC pt prefers to go home with VNS after sx, declined rehab . will d/w SW. PT eval tomorrow
[2017-06-17] MEDS ORDERED: ceFAZolin SODIUM 1 GM VIAL IVPB ONE (13:39)
[2017-06-17] MEDS ORDERED: MIDAZOLAM HCL 2 MG/2 ML SINGLE DOSE VIAL ONE ×2 (14:55→15:32)
[2017-06-17] MEDS ORDERED: DEXAMETHASONE SOD PHOSPHATE 4 MG/1 ML VIAL ONE (15:09)
[2017-06-17] MEDS ORDERED: LIDOCAINE HCL/PF 2% SDV 5ML VIAL ONE (15:10)
[2017-06-17] MEDS ORDERED: PROPOFOL 20 ML ONE (15:10)
[2017-06-17] MEDS ORDERED: ROCURONIUM BROMIDE 50 MG/5 ML VIAL ONE ×3 (15:10→16:08)
[2017-06-17] MEDS ORDERED: ceFAZolin SODIUM 1 GM VIAL ONE ×2 (15:31→15:38)
[2017-06-17] MEDS ORDERED: PHENYLEPHRINE HCL 10 MG/1 ML SINGLE DOSE VIAL ONE (15:53)
[2017-06-17] MEDS ORDERED: HYDROmorphone HCL CARPU-JECT 2 MG/1 ML DISP.SYRIN ONE ×2 (16:45→18:40)
[2017-06-17] MEDS ORDERED: VANCOMYCIN 1,000 MG VIAL (RESTRICTED TO ID ONLY) ONE (17:33)
[2017-06-17] MEDS ORDERED: NEOSTIGMINE METHYLSULFATE 0.5 MG/ML - 10 ML MDV ONE (17:53)
[2017-06-17] MEDS ORDERED: GLYCOPYRROLATE 0.2 MG/1 ML VIAL ONE (17:55)
[2017-06-17] MEDS: HYDROmorphone HCL CARPU-JECT 1 MG/1 ML DISP.SYRIN IVPUSH PRN ×4 (18:35→19:05)
[2017-06-17] MEDS ORDERED: MAG HYDROX/AL HYDROX/SIMETH 30 ML UNIT-DOSE CUP PO PRN (18:40)
[2017-06-17] MEDS ORDERED: MAGNESIUM HYDROX 2400MG/30ML ORAL SUSPENSION 30 ML CUP PO PRN (18:40)
--- NOTE | 2017-06-17 18:40 | OP ---
Operative Note - Note: Operative Date: 06/17/17 Pre-Operative Diagnosis: right comminuted/displaced femoral neck fracture Operation: right total hip replacement Post-Operative Diagnosis: Same as Pre-op Surgeon: Simeon Montanez Traffic Control Signaler: Millie Caal Anesthesia: General Estimated Blood Loss (mls): 400
[2017-06-17] MEDS ORDERED: HYDROmorphone *PCA* 10MG/50ML DISP.SYRIN PCA ONE (18:41)
[2017-06-17] MEDS ORDERED: ONDANSETRON 4 MG/2 ML VIAL IVPUSH PRN (18:42)
[2017-06-17] MEDS ORDERED: HYDROmorphone *PCA* 10MG/50ML DISP.SYRIN PCA SCH (18:45)
[2017-06-17] MEDS ORDERED: LACTATED RINGERS SOLUTION 1,000 ML IV SCH ×3 (18:45→19:00)
[2017-06-17] MEDS ORDERED: LABETALOL HCL 5 MG/1 ML (100MG/20 ML VIAL) ONE (18:51)
[2017-06-17] MEDS ORDERED: ACETAMINOPHEN INJECTION 100 ML IVPB ONE (18:52)
[2017-06-17] MEDS ORDERED: LABETALOL HCL 5 MG/1 ML (100MG/20 ML VIAL) IVPUSH PRN (18:57)
[2017-06-17] MEDS ORDERED: KETOROLAC TROMETHAMINE 30 MG/1 ML VIAL ONE (18:58)
[2017-06-17] MEDS ORDERED: KETOROLAC TROMETHAMINE 30 MG/1 ML VIAL IVPUSH ONE (19:00)
[2017-06-17] MEDS ORDERED: ACETAMINOPHEN 1000 MG/100 ML VIAL (NON FORMULARY) IVPB ONE (19:00)
[2017-06-17] MEDS ORDERED: FERROUS SO4 325 MG TABLET (FP) PO SCH (19:00)
[2017-06-17] MEDS ORDERED: KETOROLAC TROMETHAMINE 30 MG/1 ML VIAL IVPUSH SCH (21:00)
[2017-06-17] MEDS ORDERED: ASCORBIC ACID 500 MG TABLET (FP) PO SCH (22:00)
[2017-06-17] MEDS ORDERED: SENNOSIDES/DOCUSATE COMBO (SENNA PLUS) TABLET (UD) PO SCH (22:00)
[2017-06-17] MEDS ORDERED: oxyCODONE HCL 10 MG SUSTAINED ACTING TABLET PO SCH (22:00)
[2017-06-17] MEDS: ATORVASTATIN CA 10 MG TABLET (FP) PO SCH (22:17)
[2017-06-17] MEDS: lamoTRIgine 100 MG TABLET (FP) PO SCH (22:17)
[2017-06-17] MEDS: LACTATED RINGERS SOLUTION 1,000 ML IV SCH (23:00)
--- NOTE | 2017-06-18 01:41 | EKG ---
Test Reason : Blood Pressure : / mmHG Vent. Rate : 089 BPM Atrial Rate : 089 BPM P-R Int : 128 ms QRS Dur : 084 ms QT Int : 348 ms P-R-T Axes : 036 022 009 degrees QTc Int : 423 ms NORMAL SINUS RHYTHM NORMAL ECG WHEN COMPARED WITH ECG OF 06-OCT-2012 14:44, NO SIGNIFICANT CHANGE WAS FOUND Confirmed by HOLLY BREWER MD ([id number]) on 06/18/2017 1:40:53 AM Referred By: Confirmed By:HOLLY BREWER MD
[2017-06-18] MEDS ORDERED: CEFAZOLIN 1 GM PUSH 1 GM/10 ML DISP.SYRIN IVPUSH SCH (02:00)
[2017-06-18] MEDS ORDERED: CEFAZOLIN 1 GM/D5W 50 ML IVPB SCH (02:00)
[2017-06-18] MEDS ORDERED: MAG HYDROX/AL HYDROX/SIMETH 30 ML UNIT-DOSE CUP PO PRN (02:34)
[2017-06-18] MEDS ORDERED: ALBUTEROL SO4 2.5/IPRATROPIUM 0.5 INH SOL 3 ML VIAL.NEB. NEB PRN (02:34)
[2017-06-18] MEDS ORDERED: LACTATED RINGERS SOLUTION 1,000 ML IV SCH (02:34)
[2017-06-18] MEDS ORDERED: FENTANYL PATCH WASTE MC PRN (02:34)
[2017-06-18] MEDS ORDERED: ALBUTEROL SO4 2.5/IPRATROPIUM 0.5 INH SOL 3 ML VIAL.NEB. NEB ONE (02:34)
[2017-06-18] MEDS ORDERED: MAGNESIUM HYDROX 2400MG/30ML ORAL SUSPENSION 30 ML CUP PO PRN (02:34)
[2017-06-18] MEDS ORDERED: HYDROmorphone *PCA* 10MG/50ML DISP.SYRIN PCA SCH (02:34)
[2017-06-18] MEDS ORDERED: oxyCODONE HCL 5 MG TABLET PO PRN ×2 (02:34→18:24)
[2017-06-18] MEDS ORDERED: morphine SULFATE 4 MG/ML VIAL IVPUSH PRN ×2 (02:34→18:25)
[2017-06-18] MEDS ORDERED: LABETALOL HCL 5 MG/1 ML (100MG/20 ML VIAL) IVPUSH PRN (02:34)
[2017-06-18] MEDS ORDERED: ONDANSETRON 4 MG/2 ML VIAL IVPUSH PRN (02:34)
[2017-06-18] MEDS ORDERED: FENTANYL PATCH WASTE TD PRN (02:34)
[2017-06-18] MEDS: KETOROLAC TROMETHAMINE 30 MG/1 ML VIAL IVPUSH SCH ×2 (04:00→09:37)
[2017-06-18] MEDS: INSULIN SLIDING SCALE (NOVOLOG) 1 VIAL SQ SCH ×3 (06:26→17:22)
[2017-06-18] MEDS: ACETAMINOPHEN 325 MG TABLET (FP) PO SCH ×2 (06:34→17:38)
[2017-06-18] MEDS ORDERED: VENLAFAXINE HCL 75 MG E.R. CAPSULES (FP) PO SCH (08:00)
[2017-06-18 08:53] LABS: HEMATOCRIT 31.8 % (32.4-45.2); HEMOGLOBIN 10.5 GM/dL (10.7-15.3); MCH 30.4 pg (25.7-33.7); MEAN CELL VOLUME 92.1 fl (80-96); MEAN PLT VOLUME 8.6 fl (7.5-11.1); PLATELET COUNT 245 K/MM3 (134-434); RBC 3.45 M/mm3 (3.60-5.2); RDW 13.4 % (11.6-15.6); WHITE BLOOD COUNT 12.2 K/mm3 (4.0-10.0)
[2017-06-18 09:16] LABS: ANION GAP 7 (8-16); BLOOD UREA NITROGEN 26 mg/dL (7-18); CALCIUM 8.7 mg/dL (8.5-10.1); CHLORIDE 102 mmol/L (98-107); CO2 28 mmol/L (21-32); CREATININE 0.8 mg/dL (0.55-1.02); GLUCOSE,RANDOM 116 mg/dL (74-106); SODIUM 137 mmol/L (136-145)
--- NOTE | 2017-06-18 09:20 | PN ---
Physical Exam: SUBJECTIVE: Patient seen and examined. States pain is well controlled. Tolerated PT today. No CP, abdominal pain, fever, chills, nausea or vomiting. OBJECTIVE: Vital Signs Period Temp Pulse Resp BP Sys/Foster Pulse Ox Last 24 Hr 98.3 F-98.9 F 100-138 16-20 90-157/54-93 94-100 GENERAL: sitting up comfortably in bed, nad, aaox3 LUNGS: CTAB, no wheezing appreciated HEART: rrr, normal s1/s2, no jvd Abdomen: soft, NTND, normoactive BS EXTREMITIES: 2+ DP, no edema, R lateral hip ecchymosis over surgical site CBC, BMP 06/18/17 08:00 06/18/17 08:00 Hepatic Panel Total Bilirubin 0.4 mg/dL (0.2-1.0) D 06/15/17 12:55 AST 18 U/L (15-37) D 06/15/17 12:55 ALT 24 U/L (12-78) D 06/15/17 12:55 Alkaline Phosphatase 102 U/L (45-117) D 06/15/17 12:55 Albumin 4.3 g/dl (3.4-5.0) 06/15/17 12:55 Active Medications Acetaminophen (Tylenol -) 650 mg PO Q6HPO [facility] Stop: 06/21/17 00:01 Last Admin: 06/18/17 17:38 Dose: 650 mg Acetaminophen (Tylenol -) 650 mg PO Q6H PRN PRN Reason: PAIN Al Hydroxide/Mg Hydroxide (Mylanta Oral Suspension -) 30 ml PO Q4H PRN PRN Reason: DYSPEPSIA Albuterol/Ipratropium (Duoneb -) 1 amp NEB Q6H PRN PRN Reason: SHORTNESS OF BREATH Ascorbic Acid (Vitamin C -) 500 mg PO BID [facility] Last Admin: 06/18/17 21:32 Dose: 500 mg Atorvastatin Calcium (Lipitor -) 10 mg PO HS [facility] Last Admin: 06/18/17 21:32 Dose: 10 mg Enoxaparin Sodium (Lovenox -) 40 mg SQ DAILY [facility] Last Admin: 06/18/17 09:37 Dose: 40 mg Fentanyl (Duragesic 12mcg Patch -) 1 patch TD Q72H [facility] Last Admin: 06/18/17 17:35 Dose: 1 patch Ferrous Sulfate (Feosol -) 325 mg PO BIDWM [facility] Last Admin: 06/18/17 17:34 Dose: 325 mg Lactated Ringer's (Lactated Ringers Solution) 1,000 mls @ 125 mls/hr IV ASDIR [facility] Last Admin: 06/18/17 12:23 Dose: 125 mls/hr Insulin Aspart (Novolog Vial Sliding Scale -) 1 vial SQ TIDAC [facility] PRN Reason: Protocol Last Admin: 06/18/17 17:22 Dose: 2 units Labetalol HCl (Normodyne Injection -) 10 mg IVPUSH ONCE PRN PRN Reason: HYPERTENSION Lamotrigine (Lamictal -) 200 mg PO HS [facility] Last Admin: 06/18/17 21:32 Dose: 200 mg Magnesium Hydroxide (Milk Of Magnesia -) 30 ml PO DAILY PRN PRN Reason: CONSTIPATION Miscellaneous (Duragesic Patch Waste) 1 each TD PRN PRN Last Admin: 06/18/17 17:46 Dose: 1 each Morphine Sulfate (Morphine Sulfate) 2 mg IVPUSH Q4H PRN PRN Reason: PAIN Multivitamins/Minerals/Vitamin C (Tab-A-Vit -) 1 tab PO DAILY [facility] Last Admin: 06/18/17 09:35 Dose: 1 tab Nicotine (Nicoderm Patch -) 21 mg TD DAILY [facility] Last Admin: 06/18/17 09:37 Dose: 21 mg Ondansetron HCl (Zofran Injection) 4 mg IVPUSH Q6H PRN PRN Reason: NAUSEA AND/OR VOMITING Oxycodone HCl (Roxicodone -) 10 mg PO Q8H PRN PRN Reason: PAIN Pantoprazole Sodium (Protonix -) 40 mg PO DAILY [facility] Last Admin: 06/18/17 09:35 Dose: 40 mg Pregabalin (Lyrica -) 75 mg PO BID [facility] Last Admin: 06/18/17 21:32 Dose: 75 mg Ranitidine HCl (Zantac -) 300 mg PO DAILY [facility] Last Admin: 06/18/17 09:35 Dose: 300 mg Senna/Docusate Sodium (Pericolace -) 1 tablet PO BID [facility] Last Admin: 06/18/17 21:32 Dose: 1 tablet Venlafaxine HCl (Effexor Xr -) 150 mg PO DAILY@0800 [facility] Last Admin: 06/18/17 09:36 Dose: 150 mg ASSESSMENT/PLAN: 51yo woman with PMH of chronic back pain s/p simulator, incontinence s/p bladder stimulator, and NIDDM who presents s/p mechanical fall, found to have Right femur neck fracture. #Right femoral neck fx POD#1 s/p THR -d/c FOREIGN CORRESPONDENT pump and transition to PO meds: oxycodone 5mg q8h + morphine 2mg IVP q4h PRN for breakthrough pain -Continue home fentanyl patch #Wheezing w/o dyspnea, 20pack-year smoking hx, likely 2/2 undiagnosed COPD -duoneb QID PRN -Encourage Incentive spirometer #NIDDM -ISS and BGM #Chronic Back Pain s/p spinal stimulator -Oxycontin 10mg q8H, Lyrica 75mg BID, Fentanyl patch, Effexor 150mg daily #Bipolar/Depression/Anxiety -Cont Lamictal 200mg daily and Effexor 150mg dialy -Propanolol 10mg PRN for anxiety #Nicotine Dependence -Nicotine patch 21mg TD #F/E/N: Hold IVFs/ lytes wnl / DM diet #PPX -DVT - Lovenox 40mg SQ daily -GI - Protonix #Disposition - discharge home tomorrow (Saturday) with VNS FULL code d/w Dr. Shama Georges MD PGY1 - Internal Medicine Visit type - Emergency Visit Emergency Visit: No - New Patient This patient is new to me today: No - Critical Care Critical Care patient: No
[2017-06-18] MEDS ORDERED: PT OWN MED DRAWER 7, Y5N ONE (09:28)
[2017-06-18] MEDS: FERROUS SO4 325 MG TABLET (FP) PO SCH ×2 (09:34→17:34)
[2017-06-18] MEDS: ASCORBIC ACID 500 MG TABLET (FP) PO SCH ×2 (09:35→21:32)
[2017-06-18] MEDS: SENNOSIDES/DOCUSATE COMBO (SENNA PLUS) TABLET (UD) PO SCH ×2 (09:35→21:32)
[2017-06-18] MEDS: PANTOPRAZOLE 40 MG TABLET (FP) PO SCH (09:35)
[2017-06-18] MEDS: MULTIVITAMINS (DAILY MVI) TABLET (FP) PO SCH (09:35)
[2017-06-18] MEDS: RANITIDINE HCL 150 MG TABLET (FP) PO SCH (09:35)
[2017-06-18] MEDS: PREGABALIN 75 MG CAPSULE PO SCH ×2 (09:36→21:32)
[2017-06-18] MEDS: NICOTINE 21 MG/24 HOURS TOPICAL PATCH TD SCH (09:37)
[2017-06-18] MEDS: ENOXAPARIN NA (PORCINE) 40 MG/0.4 ML DISP.SYRIN SQ SCH (09:37)
[2017-06-18] MEDS ORDERED: MULTIVITAMINS (DAILY MVI) TABLET (FP) PO SCH (10:00)
[2017-06-18] MEDS ORDERED: oxyCODONE HCL 10 MG SUSTAINED ACTING TABLET PO SCH (10:00)
[2017-06-18] MEDS ORDERED: CEFAZOLIN 1 GM PUSH 1 GM/10 ML DISP.SYRIN IVPUSH ONE (10:00)
[2017-06-18] MEDS: LACTATED RINGERS SOLUTION 1,000 ML IV SCH (12:23)
--- NOTE | 2017-06-18 13:18 | PN ---
Progress Note (short form) - Note Progress Note: POD #1 - s/p right hip replacement under general anesthesia with dilaudid AUCTION ASSISTANT for postop pain management. VSS. Pt. doing well, sitting up comfortably in chair. No complaints. Good pain control. No apparent anesthetic complications noted. Will conitnue AUCTION ASSISTANT for now.
--- NOTE | 2017-06-18 16:17 | PN ---
Teaching Attending Note Name of Resident: Lary Georges ATTENDING PHYSICIAN STATEMENT I saw and evaluated the patient. I reviewed the resident's note and discussed the case with the resident. I agree with the resident's findings and plan as documented. SUBJECTIVE: No fever or chills , has no Pain on LEAD INSPECTOR , walking around OBJECTIVE: NAD, MMM, CV: RRR Lungs : no crackles,CTAB Abd: soft, NT, ND , NL BS Ext: bruising and surgical dressing over lateral R hip. DP 2+ ASSESSMENT AND PLAN: 51 y/o lady with h/ DM , chronic back pain, s/p stimulator, and urinary incontinence s/p bladder stimulator , depression and other medical problems who presented with R hip pain after a fall. she was found to have R femoral neck Fx. 1- R femoral neck Fx: s/p THR - on LEAD INSPECTOR now , looks very comfortable, other meds held but fentanyl patch. - might be able to dc LEAD INSPECTOR this evening in preparatio for dc tomorrow - DVT px per ortho after dc 2- Wheezing: might have underlying COPD with her heavy smoking .clear lungs - cont Nebs - nicotine patch 3- mild leukocytosis. no signs or sx of infection - UA and Cxray nl - No indication for ABx 4- DM : SSI, hold metformin 5- HLOC plan for dc home tomorrow with VNS
[2017-06-18] MEDS ORDERED: fentaNYL 12mcg/hr PATCH.TD72 TD SCH (18:15)
[2017-06-18] MEDS ORDERED: lamoTRIgine 100 MG TABLET (FP) PO SCH (22:00)
[2017-06-18] MEDS ORDERED: ATORVASTATIN CA 10 MG TABLET (FP) PO SCH (22:00)
--- NOTE | 2017-06-18 22:55 | PN ---
Progress Note (short form) - Note Progress Note: Pt seen and examined. Comfortable. Walked 100+ feet today. Afebrile, tachycardic Selected Entries 06/18/17 06/18/17 14:00 18:00 Temperature 99.0 F 99.1 F Pulse Rate 112 H 119 H Respiratory 21 20 Rate Blood Pressure 102/60 109/65 Laboratory Tests 06/18/17 06/18/17 08:00 08:00 WBC 12.2 H Hgb 10.5 L D Hct 31.8 L D Plt Count 245 Sodium 137 Potassium 4.0 Chloride 102 Carbon Dioxide 28 Anion Gap 7 L BUN 26 H D Creatinine 0.8 Random Glucose 116 H Calcium 8.7 Gen: NAD RLE: c/d/i, NVID A/P 51yo female POD#1 s/p left total hip replacement for femoral neck fracture 1. Doing well. Continue PT. WBAT RLE. 2. OK to d/c home when cleared by medicine. Stable from an orthopedic perspective. Most elective (non-hip fracture) hip replacements are discharged home on POD#2. 3. D/C home with Lovenox x 35 days and Cephalexin 500mg PO TID x 10 days for wound infection ppx. 4. F/U in office in 14 days; call for appt. ([phone])
[2017-06-19] MEDS: ACETAMINOPHEN 325 MG TABLET (FP) PO SCH ×7 (00:30→11:58)
[2017-06-19 05:52] VITALS: BP 128/68; PULSE 110; TEMP 99.9
[2017-06-19] MEDS: INSULIN SLIDING SCALE (NOVOLOG) 1 VIAL SQ SCH ×2 (06:55→11:33)
[2017-06-19] MEDS: FERROUS SO4 325 MG TABLET (FP) PO SCH (07:55)
[2017-06-19] MEDS ORDERED: morphine CARPU-JECT 8 MG/1 ML DISP.SYRIN IVPUSH PRN (08:14)
[2017-06-19 08:57] LABS: HEMATOCRIT 26.4 % (32.4-45.2); HEMOGLOBIN 8.6 GM/dL (10.7-15.3); MCHC 32.6 g/dl (32.0-36.0); MEAN CELL VOLUME 91.8 fl (80-96); MEAN PLT VOLUME 8.5 fl (7.5-11.1); PLATELET COUNT 222 K/MM3 (134-434); RBC 2.88 M/mm3 (3.60-5.2); RDW 13.1 % (11.6-15.6); WHITE BLOOD COUNT 11.7 K/mm3 (4.0-10.0)
[2017-06-19 09:12] LABS: ANION GAP 6 (8-16); BLOOD UREA NITROGEN 10 mg/dL (7-18); CALCIUM 8.3 mg/dL (8.5-10.1); CHLORIDE 105 mmol/L (98-107); CO2 30 mmol/L (21-32); CREATININE 0.5 mg/dL (0.55-1.02); GLUCOSE,RANDOM 126 mg/dL (74-106); POTASSIUM 3.8 mmol/L (3.5-5.1); SODIUM 141 mmol/L (136-145)
--- NOTE | 2017-06-19 09:16 | PN ---
Teaching Attending Note Name of Resident: Lary Georges ATTENDING PHYSICIAN STATEMENT I saw and evaluated the patient. I reviewed the resident's note and discussed the case with the resident. I agree with the resident's findings and plan as documented. SUBJECTIVE: Patient is comfortable , c/o having pain but pain medication is helping. No fever or chills, no shortness of breath. OBJECTIVE: Vital Signs Temperature 99.9 F H 06/19/17 05:51 Pulse Rate 110 H 06/19/17 05:51 Respiratory Rate 20 06/19/17 05:51 Blood Pressure 128/68 06/19/17 05:51 O2 Sat by Pulse Oximetry (%) 96 06/17/17 21:30 CBCD WBC 11.7 K/mm3 (4.0-10.0) H 06/19/17 07:45 RBC 2.88 M/mm3 (3.60-5.2) L 06/19/17 07:45 Hgb 8.6 GM/dL (10.7-15.3) L D 06/19/17 07:45 Hct 26.4 % (32.4-45.2) L D 06/19/17 07:45 MCV 91.8 fl (80-96) 06/19/17 07:45 MCHC 32.6 g/dl (32.0-36.0) 06/19/17 07:45 RDW 13.1 % (11.6-15.6) 06/19/17 07:45 Plt Count 222 K/MM3 (134-434) 06/19/17 07:45 MPV 8.5 fl (7.5-11.1) 06/19/17 07:45 CMP Sodium 137 mmol/L (136-145) 06/18/17 08:00 Potassium 4.0 mmol/L (3.5-5.1) 06/18/17 08:00 Chloride 102 mmol/L (98-107) 06/18/17 08:00 Carbon Dioxide 28 mmol/L (21-32) 06/18/17 08:00 Anion Gap 7 (8-16) L 06/18/17 08:00 BUN 26 mg/dL (7-18) H D 06/18/17 08:00 Creatinine 0.8 mg/dL (0.55-1.02) 06/18/17 08:00 Creat Clearance w eGFR > 60 (>60) 06/15/17 12:55 Random Glucose 116 mg/dL (74-106) H 06/18/17 08:00 Calcium 8.7 mg/dL (8.5-10.1) 06/18/17 08:00 Total Bilirubin 0.4 mg/dL (0.2-1.0) D 06/15/17 12:55 AST 18 U/L (15-37) D 06/15/17 12:55 ALT 24 U/L (12-78) D 06/15/17 12:55 Alkaline Phosphatase 102 U/L (45-117) D 06/15/17 12:55 Total Protein 7.7 g/dl (6.4-8.2) 06/15/17 12:55 Albumin 4.3 g/dl (3.4-5.0) 06/15/17 12:55 Current Medications Generic Name Dose Route Start Last Admin Trade Name Freq PRN Reason Stop Dose Admin Acetaminophen 650 mg 06/18/17 06:00 06/19/17 07:51 Tylenol - PO 06/21/17 00:01 Not Given Q6HPO AMY Acetaminophen 650 mg 06/21/17 01:00 Tylenol - PO Q6H PRN PAIN Al Hydroxide/Mg Hydroxide 30 ml 06/18/17 02:34 Mylanta Oral Suspension - PO Q4H PRN DYSPEPSIA Albuterol/Ipratropium 1 amp 06/18/17 02:34 Duoneb - NEB Q6H PRN SHORTNESS OF BREATH Ascorbic Acid 500 mg 06/18/17 10:00 06/18/17 21:32 Vitamin C - PO 500 mg BID AMY Administration Atorvastatin Calcium 10 mg 06/18/17 22:00 06/18/17 21:32 Lipitor - PO 10 mg HS AMY Administration Cephalexin HCl 500 mg 06/19/17 10:00 Keflex - PO TID AMY Enoxaparin Sodium 40 mg 06/18/17 10:00 06/18/17 09:37 Lovenox - SQ 40 mg DAILY AMY Administration Fentanyl 1 patch 06/18/17 18:15 06/18/17 17:35 Duragesic 12mcg Patch - TD 1 patch Q72H AMY Administration Ferrous Sulfate 325 mg 06/18/17 08:00 06/18/17 17:34 Feosol - PO 325 mg BIDWM AMY Administration Lactated Ringer's 1,000 mls @ 125 mls/hr 06/18/17 02:34 06/18/17 12:23 Lactated Ringers Solution IV 125 mls/hr ASDIR AMY Administration Insulin Aspart 1 vial 06/18/17 07:00 06/19/17 06:55 Novolog Vial Sliding Scale - SQ 2 units TIDAC AMY Administration Protocol Labetalol HCl 10 mg 06/18/17 02:34 Normodyne Injection - IVPUSH ONCE PRN HYPERTENSION Lamotrigine 200 mg 06/18/17 22:00 06/18/17 21:32 Lamictal - PO 200 mg HS AMY Administration Magnesium Hydroxide 30 ml 06/18/17 02:34 Milk Of Magnesia - PO DAILY PRN CONSTIPATION Miscellaneous 1 each 06/18/17 02:34 06/18/17 17:46 Duragesic Patch Waste TD 1 each PRN PRN Administration Morphine Sulfate 2 mg 06/19/17 08:14 06/19/17 08:26 Morphine Sulfate IVPUSH 2 mg Q4H PRN Administration PAIN Multivitamins/Minerals/Vitamin C 1 tab 06/18/17 10:00 06/18/17 09:35 Tab-A-Vit - PO 1 tab DAILY AMY Administration Nicotine 21 mg 06/18/17 10:00 06/18/17 09:37 Nicoderm Patch - TD 21 mg DAILY AMY Administration Ondansetron HCl 4 mg 06/18/17 02:34 Zofran Injection IVPUSH Q6H PRN NAUSEA AND/OR VOMITING Oxycodone HCl 10 mg 06/18/17 18:24 06/19/17 04:15 Roxicodone - PO 10 mg Q8H PRN Administration PAIN Pantoprazole Sodium 40 mg 06/18/17 10:00 06/18/17 09:35 Protonix - PO 40 mg DAILY AMY Administration Pregabalin 75 mg 06/18/17 10:00 06/18/17 21:32 Lyrica - PO 75 mg BID AMY Administration Ranitidine HCl 300 mg 06/18/17 10:00 06/18/17 09:35 Zantac - PO 300 mg DAILY AMY Administration Senna/Docusate Sodium 1 tablet 06/18/17 10:00 06/18/17 21:32 Pericolace - PO 1 tablet BID AMY Administration Venlafaxine HCl 150 mg 06/18/17 08:00 06/18/17 09:36 Effexor Xr - PO 150 mg DAILY@0800 [facility] Administration Home Medications Medication Instructions Recorded Atorvastatin Calcium [Lipitor] 10 mg PO DAILY 03/29/16 Metformin HCl [Glucophage] 1,000 mg PO BID 03/29/16 Ranitidine HCl 300 mg PO DAILY 03/29/16 Venlafaxine HCl ER [Effexor Xr -] 150 mg PO DAILY 03/29/16 FENTANYL 12mcg PATCH [DURAGESIC 1 each TD Q72H 06/15/17 12mcg PATCH -] Lamotrigine [Lamictal -] 200 mg PO HS 06/15/17 Omeprazole 40 mg PO DAILY 06/15/17 Pregabalin [Lyrica -] 75 mg PO BID 06/15/17 Propranolol HCl 10 mg PO TID PRN 06/15/17 Oxycodone HCl 10 mg PO TID PRN 06/16/17 Cephalexin Monohydrate [Keflex -] 500 mg PO TID #30 capsule 06/19/17 Enoxaparin [Lovenox -] 40 mg SQ DAILY #35 disp.syrin 06/19/17 Sennosides/Docusate Sodium 1 tablet PO BID #60 tablet 06/19/17 [Pericolace -] PE: Nice female HEENT: neck supple, No JVD Chest: CTA BL, no wheezing today Heart: S1S2 positive, HR of 100 ABdomen: soft, NT ext: Right hip surgery, site is clean, pulses are positive. Neuro: AAOx3, Cn2-12 grossly intact Xray reports reviewed ASSESSMENT AND PLAN: 51 y/o lady with h/ DM , chronic back pain, s/p stimulator, and urinary incontinence s/p bladder stimulator , depression and other medical problems who presented with R hip pain after a fall. she was found to have R femoral neck Fx. # POD # 2 s/p THR due to Right femoral neck Fx : On Fentanyl patch, and oxycodone given by her pain management. As per recommendations to send patient home on Lovenox x 35 days for DVT px # Mild Tachycardia most likely due to having pain, as per patient as well, states that is due to her pain. No signs of PE, since patient is not SOB, able to ambulate with a walker without VALLE or at rest , on Lovenox since her surgery . continue incentive spirometer. # Acute leukocytosis trending down, no signs of any acute infection, patient is being discharged home on Cephalexin x 10 days # Smoking cessation discussed with the patient , being discharged on Nicoderm patch. also will follow up with for Pulmonary function test. since smoker to r/o COPD # DM : SSI, hold metformin Patient is going home with VNS . will follow up with pain management and Dr.James Montanez in 2 weeks. Also was suggested to see her primary and have her Vit D level checked. any worsening symptoms to call Dr.James Montanez and come back to the hospiatal
[2017-06-19] MEDS ORDERED: PT OWN MED DRAWER 7, Y5N ONE (09:22)
[2017-06-19] MEDS: MULTIVITAMINS (DAILY MVI) TABLET (FP) PO SCH (09:25)
[2017-06-19] MEDS: PANTOPRAZOLE 40 MG TABLET (FP) PO SCH (09:25)
[2017-06-19] MEDS: SENNOSIDES/DOCUSATE COMBO (SENNA PLUS) TABLET (UD) PO SCH (09:25)
[2017-06-19] MEDS: RANITIDINE HCL 150 MG TABLET (FP) PO SCH (09:26)
[2017-06-19] MEDS: ASCORBIC ACID 500 MG TABLET (FP) PO SCH (09:26)
[2017-06-19] MEDS: NICOTINE 21 MG/24 HOURS TOPICAL PATCH TD SCH (09:27)
[2017-06-19] MEDS: ENOXAPARIN NA (PORCINE) 40 MG/0.4 ML DISP.SYRIN SQ SCH (09:27)
[2017-06-19] MEDS: PREGABALIN 75 MG CAPSULE PO SCH (09:27)
[2017-06-19] MEDS ORDERED: CEPHALEXIN MONOHYDRATE 500 MG CAPSULE (UD) PO SCH (10:00)
--- NOTE | 2017-06-19 11:09 | PN ---
Progress Note (short form) - Note Progress Note: Anesthesia Pain Management Note Patient did well overnight, ambulating, pain controlled, ROAD CREW MEMBER discontinued. Dept of anesthesiology will sign off care at this time.
--- NOTE | 2017-06-19 22:48 | DS ---
Physical Exam: SUBJECTIVE: Patient seen and examined. States pain is well controlled. Tolerated PT today. No CP, abdominal pain, fever, chills, nausea or vomiting. OBJECTIVE: Vital Signs Period Temp Pulse Resp BP Sys/Foster Pulse Ox Last 24 Hr 99.9 F 110 20-20 128/68 PHYSICAL EXAM GENERAL: sitting up comfortably in bed, nad, aaox3 LUNGS: CTAB, no wheezing appreciated HEART: rrr, normal s1/s2, no jvd Abdomen: soft, NTND, normoactive BS EXTREMITIES: 2+ DP, no edema, R lateral hip ecchymosis over surgical site LABS CBC, BMP 06/19/17 07:45 06/19/17 07:45 Hepatic Panel Total Bilirubin 0.4 mg/dL (0.2-1.0) D 06/15/17 12:55 AST 18 U/L (15-37) D 06/15/17 12:55 ALT 24 U/L (12-78) D 06/15/17 12:55 Alkaline Phosphatase 102 U/L (45-117) D 06/15/17 12:55 Albumin 4.3 g/dl (3.4-5.0) 06/15/17 12:55 HOSPITAL COURSE: Date of Admission:06/15/17 Date of Discharge: 06/19/17 Pre-admission Course: 51yo woman with PMH of chronic back pain s/p spinal fusion with stimulator, urinary incontinence s/p bladder stimulator, depression/Anxiety/Bipolar disorder , NIDDMII who presents today s/p mechanical fall. Patient reports she recently moved to a new place and is unfamiliar with the surroundings. She was walking out of the bedroom and went the wrong way towards the stairs. Patient fell from 8 steps of stairs landing in her right hip. Patient denies any LOC, dizziness, chest pain, palpitations before, during, or after the fall. Patient does report having sinus congestion and cough that started earlier this week for which she went to her doctor for yesterday and prescribed her a Z-Pack. Patient states she was tested for influenza and strep, which were both negative. Otherwise, patient denies fever, chills, nausea, vomiting, abdominal pain, chest pain, palpitations, shortness of breath, dysuria, hematuria, frequency. ER course was notable for: (1)Pelvic X-Ray revealed Right femur fracture (2)Dilaudid for pain control Subsequent Hospital Course: Orthopedics was consulted and patient was scheduled for a R total hip replacement. Her pre-operative physical exam was notable for hepatojugular reflux, and 2D ECHO was performed that was wnl. Patient's perioperative risk for cardiac complications was determined to be intermediate risk. The procedure itself is intermediate risk. Although ECHO wnl, no signs of HF, ACS, arrhythmia , pt has limited functional status due chronic back pain, < 4 METs and thus intermediate risk for elbert-op cardiac complications. Patient tolerated procedure well, and was give a RADIOLOGIC TECHNICIAN pump for pain control. She was able to be converted to PO pain management. She tolerated PT well, and was able to 100 feet using a rolling walker. During the admission was noted to have wheezing w/o dyspnea on physical exam. She was given duo nebs and incentive spirometer with improvement in wheezing. She has a 20 pack-year smoking history and suspect there is an element of underlying COPD. Pt was instructed to follow- up with Pulmonology group for PFTs and further work-up. Her diabetes was well controlled during her admission. Consults: Orthopedics - Dr. Simeon Sebastian Minutes to complete discharge: 45 Discharge Summary Reason For Visit: CLOSED FRACTURE OF NECK OF RIGHT FEMUR Condition: Stable - Instructions Diet, Activity, Other Instructions: You had a right total hip replacement. Recommendations: -You may will resume your regular daily activities and diet. -Continue with your physical therapy Medications: -Continue your regular home medications with the following additions: (1) Inject yourself as directed in your stomach with Lovenox 40mg once per day for the next 35 days (last dose will be on July 25, 2017) (2) Take 1 dose of Cephalexin 500mg three times today for 10 days (last will be on Saturday, 06/28) (3) Take 1 tablet Pericolace twice per day for constipation as needed. (4) A prescription for nicotine patch has also been sent your pharmacy; you must refrain from smoking while on the patch or you run risk of adverse cardiovascular event (very high blood pressure can lead to stroke, heart attack and ) Follow-ups: -Make an appointment to see Dr. Montanez in 14 days. His office number is . -Make an appointment to see your primary care and pain management physician within the next 1-2 weeks. -You should make an appointment within 1-2 months to see a Sole Stainer (Dr. Ulrich) to have lung function tests performed. Please return to the Emergency Department if you have high fever, chills, develop signs of infection, your arms or calfs become swollen and painful, or if you have any new or concerning symptoms. Referrals: Tarik Ulrich MD [Staff Physician] - 3 Weeks Simeon Montanez MD [Staff Physician] - 2 Weeks Beverly Burleson [Primary Care Provider] - 1 Week Disposition: HOME - Home Medications Comprehensive Discharge Medication List: Ambulatory Orders Atorvastatin Calcium [Lipitor] 10 mg PO DAILY 03/29/16 Metformin HCl [Glucophage] 1,000 mg PO BID 03/29/16 Ranitidine HCl 300 mg PO DAILY 03/29/16 Venlafaxine HCl ER [Effexor Xr -] 150 mg PO DAILY 03/29/16 FENTANYL 12mcg PATCH [DURAGESIC 12mcg PATCH -] 1 each TD Q72H 06/15/17 Lamotrigine [Lamictal -] 200 mg PO HS 06/15/17 Omeprazole 40 mg PO DAILY 06/15/17 Pregabalin [Lyrica -] 75 mg PO BID 06/15/17 Propranolol HCl 10 mg PO TID PRN 06/15/17 Oxycodone HCl 10 mg PO TID PRN 06/16/17 Cephalexin Monohydrate [Keflex -] 500 mg PO TID #30 capsule 06/19/17 Enoxaparin [Lovenox -] 40 mg SQ DAILY #35 disp.syrin 06/19/17 Nicotine Patch [Nicoderm Patch -] 1 patch TD DAILY #30 patch 06/19/17 Sennosides/Docusate Sodium [Pericolace -] 1 tablet PO BID #60 tablet 06/19/17 This patient is new to me today: No Emergency Visit: No Critical Care patient: No - Discharge Referral Referred to [facility] No
[2017-06-21] MEDS ORDERED: ACETAMINOPHEN 325 MG TABLET (FP) PO PRN (01:00)
--- NOTE | 2017-06-21 17:15 | PATH ---
Surgical Pathology Report Patient Name: KIMBERLY PICKARD Med. Rec. #: [id number] /Age/Gender: 1965 (Age: 51) / F Account: [id number] Location: [address] [place] [address] Taken: 06/17/2017 Received: 06/18/2017 Reported: 06/21/2017 Physicians: PHYSICIAN EMERGENCY DEPT Specimen(s) Received RIGHT FEMORAL HEAD Clinical History Closed fracture right femoral neck Final Diagnosis FEMORAL HEAD, RIGHT, TOTAL HIP ARTHROPLASTY: BONE AND CARTILAGE WITH DEGENERATIVE CHANGES AND FOCAL INTERSTITIAL HEMORRHAGE CONSISTENT WITH FRACTURE. Electronically Signed Cecile Lockhart M.D. Gross Description Received in formalin, labeled "right femoral head," is a 4.0 x 4.0 x 3.5 cm. femoral head with a 2.4 cm in length portion of femoral neck attached. The margin of resection is red-brown, jagged and hemorrhagic. No areas of eburnation are identified. The articular surface is boland-yellow and focally granular. The underlying trabecular bone is yellow, hard and focally hemorrhagic. A quality control representative section is submitted in one cassette, following decalcification. 06/19/201706/19/2017
== END 2017-06-19 12:29 | disposition home or self-care (01) | DRG 470 ==
LOC: JER 12:03 → JERBED 16:38 → J6S 18:26
PROVIDERS: ADMIT Internal Medicine; ATTEND Internal Medicine
PROC: 0SR90JZ Replacement of Right Hip Joint with Synthetic Substitute, Open Approach (ICD-10-PCS; principal; 2017-06-17 15:00)
DX: S72.001A Fracture of unspecified part of neck of right femur, initial encounter for closed fracture (principal); W19.XXXA Unspecified fall, initial encounter; Y93.9 Activity, unspecified; Y92.008 Other place in unspecified non-institutional (private) residence as the place of occurrence of the external cause; Y99.9 Unspecified external cause status; E11.9 Type 2 diabetes mellitus without complications; R00.0 Tachycardia, unspecified; D72.829 Elevated white blood cell count, unspecified; F31.9 Bipolar disorder, unspecified; F41.8 Other specified anxiety disorders; F17.210 Nicotine dependence, cigarettes, uncomplicated; M54.9 Dorsalgia, unspecified
CPT/HCPCS: 36415; 71010-TC; 71101-TC; 73502-TC-RT; 73523-TC; 73560-TC-RT; 73700-TC-RT; 80048; 80053; 81003; 81015; 85025; 85027; 85610; 85730; 86850; 86900; 86901; 88307-TC; 88311-TC; 93005; 93010; 93306-TC; 94010; 94640; 94760; 97116-GP; 97161-GP; 99282-25; J1644

== ENCOUNTER 2019-03-26 09:55 | Day surgery (SDC) | payer OTHER ==
[2019-03-23 09:31] VITALS: BMI 28.3
[~2019-03-26 09:55] MED LIST: GABAPENTIN 300 MG CAPSULE (FP) PO STA; oxyCODONE HCL 10 MG SUSTAINED ACTING TABLET PO STA
[2019-03-26] MEDS ORDERED: MIDAZOLAM HCL 2 MG/2 ML SINGLE DOSE VIAL ONE (11:50)
[2019-03-26] MEDS ORDERED: LIDOCAINE 1%/EPI 1:100000 (20 ML MULTI DOSE VIAL) ONE (12:03)
[2019-03-26] MEDS ORDERED: PROPOFOL 20 ML ONE (12:26)
[2019-03-26] MEDS ORDERED: SUCCINYLCHOLINE CHLORIDE 200 MG/10 ML SYRINGE ONE (12:26)
--- NOTE | 2019-03-26 12:29 | HP ---
History & Physical Update - History History: No Change - Physical Physical: No Change - Assessment Assessment: No Change - Plan Plan: No Change
[2019-03-26] MEDS ORDERED: ONDANSETRON 4 MG/2 ML VIAL ONE (12:43)
[2019-03-26] MEDS ORDERED: ceFAZolin SODIUM 1 GM VIAL ONE (12:43)
[2019-03-26] MEDS ORDERED: DEXAMETHASONE SOD PHOSPHATE 4 MG/1 ML VIAL ONE (12:43)
[2019-03-26] MEDS ORDERED: LIDOCAINE 1%/EPI 1:100000 (20 ML MULTI DOSE VIAL) INF ONE (12:52)
[2019-03-26] MEDS ORDERED: ONDANSETRON 4 MG/2 ML VIAL IVPUSH PRN (13:23)
[2019-03-26] MEDS ORDERED: oxyCODONE HCL 5 MG TABLET PO PRN (13:23)
[2019-03-26] MEDS ORDERED: LACTATED RINGERS SOLUTION 1,000 ML IV SCH (13:30)
--- NOTE | 2019-03-26 13:51 | OP ---
Operative Note - Note: Operative Date: 03/26/19 Pre-Operative Diagnosis: malfunctioning battery Operation: replacement of battery spinal cord stimulator Surgeon: Juancho Gerber Electroencephalogram Technologist: Raiza Wadsworth Anesthesiologist/COMPRESSOR STATION CHIEF ENGINEER: Essie Wu Anesthesia: Spinal Estimated Blood Loss (mls): 10 Fluid Volume Replaced (mls): 900 Operative Report Dictated: Yes
--- NOTE | 2019-03-26 13:52 | SURG ---
Surgery Steel Construction Worker Note Steel Construction Worker: Raiza Wadsworth PA-C Date of Service: 03/26/19 Diagnosis: malfunctioning battery Procedure: replacement of battery spinal cord stimulator I was present for the entirety of the operative procedure. For further detail, please refer to operative report. Visit type - Case Type Case Type: Scheduled - Emergency Emergency Visit: No - New patient This patient is new to me today: Yes Date on this admission: 03/26/19
[2019-03-26 14:46] VITALS: TEMP 98.5
--- NOTE | 2019-03-26 14:57 | OP ---
DATE OF OPERATION: 03/26/2019 PREOPERATIVE DIAGNOSIS: Painful battery. POSTOPERATIVE DIAGNOSIS: Painful battery. PROCEDURE PERFORMED: Replacement of battery. SURGEON: Meagan Gerber MD SKIDDER RUNNER: WENDY Lees; WENDY Kenny ESTIMATED BLOOD LOSS: 50 mL. IV FLUIDS: Per Anesthesia. ANESTHESIA: Spinal. COMPLICATIONS: There were none. DISPOSITION: Patient brought to the PACU in stable condition. INDICATION FOR SURGERY: The patient is a 53-year-old female who has been suffering from pain from her painful battery. She wanted it removed. Risks, benefits, and alternatives discussed and the patient consented to surgery. OPERATIVE NOTE: The patient was brought to the operating room by anesthesia staff. After appropriate patient identification was performed and spinal anesthesia was given, patient was placed prone onto the OR table. All areas of bony prominences well padded at this time. Her back was prepped and draped in a sterile manner. At this point, timeout was completed. The incision over the battery was opened up. The wires were removed from the battery. The battery was replaced. It was tested, it was fine. A new battery was placed deeper. It was tested, it was fine. The fascia was closed with 2-0 Vicryl suture. The skin was closed with 3-0 Monocryl suture. Dermabond was applied, Steri-Strips applied, a sterile dressing was applied. The patient was placed supine on the OR bed, brought to the PACU in stable condition. MEAGAN GERBER M.D. ROSALINDA/[id number]
[2019-03-26 16:13] VITALS: BP 111/63; PULSE 96
--- NOTE | 2019-03-30 17:22 | PATH ---
Surgical Pathology Report Patient Name: KIMBERLY PICKARD Med. Rec. #: [id number] /Age/Gender: 1965 (Age: 53) / F Account: [id number] Location: [facility] AM[facility] Taken: 03/26/2019 Received: 03/26/2019 Reported: 03/30/2019 Physicians: Juancho Gerber M.D. Specimen(s) Received EXPLANT FROM PATIENT BACK Clinical History Painful hardware Final Diagnosis EXPLANT, PATIENT BACK, REMOVAL: WILDLIFE MANAGEMENT PROFESSOR. MACROSCOPIC DIAGNOSIS. Electronically Signed Cecile Lockhart M.D. Gross Description Received fresh labeled "explant from patient back" is a medical equipment technician consistent with battery measuring 5.5 x 4.5 x 1 cm. with inscription: Presicion spectra; REF [id number], SN [id number]. No soft tissue present, for gross examination only. MLSZ/03/27/2019 sanml/03/27/2019
== END 2019-03-26 16:05 | disposition home or self-care (01) ==
LOC: FASU 09:55
PROVIDERS: ATTEND Orthopaedic Surgery Orthopaedic Surgery of the Spine
PROC: 0JH70MZ Insertion of Stimulator Generator into Back Subcutaneous Tissue and Fascia, Open Approach (ICD-10-PCS; principal; 2019-03-26 13:00)
DX: T85.840A Pain due to nervous system prosthetic devices, implants and grafts, initial encounter (principal); Y82.8 Other medical devices associated with adverse incidents; Y92.9 Unspecified place or not applicable
CPT/HCPCS: 82962; 88300-TC; 94760

== ENCOUNTER 2021-12-09 13:56 | Emergency (ER) | payer OTHER ==
[2021-12-09 14:50] VITALS: BP 123/83; PULSE 106; TEMP 98.4; BMI 26.5
[2021-12-09] MEDS ORDERED: KETOROLAC TROMETHAMINE 30 MG/1 ML VIAL IM ONE (15:36)
[2021-12-09] MEDS ORDERED: KETOROLAC TROMETHAMINE 30 MG/1 ML VIAL ONE (15:37)
== END 2021-12-09 15:44 | disposition home or self-care (01) ==
LOC: JERFT 13:56
PROC: 3E0233Z Introduction of Anti-inflammatory into Muscle, Percutaneous Approach (ICD-10-PCS; principal; 2021-12-09)
DX: M62.830 Muscle spasm of back (principal)
CPT/HCPCS: 96372; 99284-25

== ENCOUNTER 2021-12-11 17:26 | Emergency (ER) | payer OTHER ==
[2021-12-11 18:08] VITALS: BP 120/77; PULSE 90; TEMP 98.2; BMI 26.5
[2021-12-11] MEDS ORDERED: KETOROLAC TROMETHAMINE 30 MG/1 ML VIAL IM ONE (22:10)
[2021-12-11] MEDS ORDERED: KETOROLAC TROMETHAMINE 30 MG/1 ML VIAL ONE ×2 (22:13→22:14)
== END 2021-12-11 22:38 | disposition home or self-care (01) ==
LOC: JER 17:26
PROC: 3E023GC Introduction of Other Therapeutic Substance into Muscle, Percutaneous Approach (ICD-10-PCS; principal; 2021-12-11)
DX: G89.4 Chronic pain syndrome (principal)
CPT/HCPCS: 99284-25

== ENCOUNTER 2023-03-07 18:48 | Emergency (ER) | payer OTHER ==
[2023-03-07 18:57] VITALS: BP 119/74; PULSE 81; RESP 20; TEMP 99.3; BMI 23.3
[2023-03-07] MEDS ORDERED: IBUPROFEN 400 MG TABLET (FP) PO ONE ×2 (19:26→19:40)
== END 2023-03-07 21:02 | disposition home or self-care (01) ==
LOC: JERFT 18:48
DX: S90.32XA Contusion of left foot, initial encounter (principal); M79.672 Pain in left foot; W20.8XXA Other cause of strike by thrown, projected or falling object, initial encounter
CPT/HCPCS: 73610-TC-LT-FY; 73630-TC-LT; 99283-25